=== PATIENT | female | born 1940 | race Caucasian/White ===

== ENCOUNTER 2017-05-02 12:49 | Inpatient (IN) | payer MEDICARE, OTHER ==
[~2017-05-02] VITALS: Ht 162.6 cm; Wt 61.2 kg
[~2017-05-02 12:49] MED LIST: CITALOPRAM HBR10 M1 ORAL; COLACE100 MG ORAL; DEPAKOTE ER500 MG ORAL; ECPIRIN325 M1 PO; METOPROLOL TART25 MG ORAL; PEPCID40 MG PO; SEROQUEL XR50 MG ORAL; ZOLPIDEM TARTRAT5 MG ORAL
--- NOTE | 2017-05-02 13:14 | Emergency Room Report ---
History of Present Illness General Chief Complaint: Chest Pain Source: Patient, EMS Present Illness HPI 76-year-old female p/w chest pain for less than 30 minutes. Chest pain started gradually. Localized to substernal area, no radiation to back or other areas, sharp in nature. no SOB. Denies palpitations, diaphoresis, n/v. Denies fever, chills, cough, abd pain. Denies trauma. Patient does not know if she has had a stress test in the past Denies smoking, no family history of cardiac disease at a young age. EMS arrived, gave aspirin, and nitroglycerin, which improved the pain Allergies: Coded Allergies: No Known Allergies (Unverified , 12/02/14) Patient History Past Medical History: see triage record Past Surgical History: none Pertinent Family History: none Reviewed Nursing Documentation: PMH: Agreed, PSxH: Agreed Nursing Documentation-PMH Hx Hypertension: Yes Review of Systems All Other Systems: negative except mentioned in HPI Physical Exam Vital Signs Date Time Temp Pulse Resp B/P (MAP) Pulse Ox O2 Delivery O2 Flow Rate FiO2 05/02/17 12:47 97.7 92 20 129/71 94 Room Air Sp02 EP Interpretation: reviewed, normal General Appearance: normal inspection, well appearing, no apparent distress, alert, GCS 15, non-toxic Head: normocephalic, atraumatic Eyes: bilateral eye normal inspection, bilateral eye PERRL, bilateral eye EOMI ENT: normal ENT inspection, normal pharynx, normal voice, moist mucus membranes Neck: normal inspection, full range of motion, supple Respiratory: normal inspection, lungs clear, normal breath sounds, no respiratory distress, no retraction, no wheezing, speaking full sentences, chest symmetrical Cardiovascular #1: normal inspection, regular rate, rhythm, no edema, normal capillary refill Cardiovascular #2: 2+ radial (R), 2+ radial (L) Gastrointestinal: normal inspection, non tender, soft, non-distended, no guarding Musculoskeletal: normal inspection, back normal, normal range of motion, non- tender Neurologic: normal inspection, alert, oriented x3, responsive, motor strength/ tone normal, sensory intact, normal gait, speech normal Psychiatric: normal inspection, judgement/insight normal, memory normal Skin: normal inspection, normal color, no rash, warm/dry, well hydrated, normal turgor Medical Decision Making Diagnostic Impression: Primary Impression: Acute coronary syndrome ER Course 76-year-old female presents with chest pain DDX: ACS vs. CHF vs. pneumonia vs. gastritis/GERD vs. pneumothorax PE on differential however at this time there are other more likely diagnoses. Plan: IV access, obtain labs including troponin, EKG, CXR ASA already given by EMS Anticipate admission ER course: Patient has remained on a monitor, HD stable, chest pain improved. Disposition: Patient requires admission for chest pain. Due to patient's history and comorbidities, patient has increased risk of acute cardiac event. Patient requires admission for further workup, serial troponin, and possible stress test/cath inpatient. D/W hospitalist Please note that this Emergency Department Report was dictated using [employer] picking supervisor technology software, occasionally this can lead to erroneous entry secondary to interpretation by the dictation equipment. EKG Diagnostic Results EP Interpretation: Yes Rate: normal Rhythm: NSR ST Segments: No acute changes ASA given to patient: Yes Rhythm Strip EP Interpretation: Yes Rate: 80 Rhythm: NSR, no PVCs, no ectopy Chest X-ray CXR: Ordered: Yes 1 view Indication: Chest pain EP interpretation: Yes Interpretation: No consolidation, no effusion, no PTX, no acute cardiopulmonary disease Impression: No acute disease Electronically signed by Ryan Caceres MD Laboratory Tests Test 05/02/17 13:00 White Blood Count 9.0 K/UL (4.8-10.8) Red Blood Count 4.41 M/UL (4.20-5.40) Hemoglobin 14.1 G/DL (12.0-16.0) Hematocrit 42.7 % (37.0-47.0) Mean Corpuscular Volume 97 FL (80-99) Mean Corpuscular Hemoglobin 31.9 PG (27.0-31.0) H Mean Corpuscular Hemoglobin Concent 32.9 G/DL (32.0-36.0) Red Cell Distribution Width 11.4 % (11.6-14.8) L Platelet Count 286 K/UL (150-450) Mean Platelet Volume 5.9 FL (6.5-10.1) L Neutrophils (%) (Auto) 65.9 % (45.0-75.0) Lymphocytes (%) (Auto) 24.7 % (20.0-45.0) Monocytes (%) (Auto) 7.4 % (1.0-10.0) Eosinophils (%) (Auto) 1.3 % (0.0-3.0) Basophils (%) (Auto) 0.7 % (0.0-2.0) Sodium Level 137 MMOL/L (136-145) Potassium Level 3.9 MMOL/L (3.5-5.1) Chloride Level 100 MMOL/L (98-107) Carbon Dioxide Level 27 MMOL/L (21-32) Anion Gap 10 mmol/L (5-15) Blood Urea Nitrogen 13 mg/dL (7-18) Creatinine 1.0 MG/DL (0.55-1.30) Estimate Glomerular Filtration Rate mL/min (>60) Glucose Level 83 MG/DL (74-106) Calcium Level 9.4 MG/DL (8.5-10.1) Total Bilirubin 0.3 MG/DL (0.2-1.0) Aspartate Amino Transferase (AST) 13 U/L (15-37) L Alanine Aminotransferase (ALT) 8 U/L (12-78) L Alkaline Phosphatase 52 U/L (46-116) Troponin I 0.014 ng/mL (0.000-0.056) Pro-B-Type Natriuretic Peptide 135 pg/mL (0-125) H Total Protein 7.7 G/DL (6.4-8.2) Albumin 3.9 G/DL (3.4-5.0) Globulin 3.8 g/dL Albumin/Globulin Ratio 1.0 (1.0-2.7) Last Vital Signs Date Time Temp Pulse Resp B/P (MAP) Pulse Ox O2 Delivery O2 Flow Rate FiO2 05/02/17 12:47 97.7 92 20 129/71 94 Room Air Disposition: ADMITTED INPATIENT Condition: Serious Ryan Caceres M.D. May 02, 2017 13:14
--- NOTE | 2017-05-02 13:42 | Diagnostic Imaging Report ---
Indication: Dyspnea Comparison: None A single view chest radiograph was obtained. Findings: Cardiomediastinal appearance is within normal limits for age. Pulmonary vascularity is appropriate. The diaphragmatic contour is smooth and costophrenic angles are sharp. No pleural effusions are identified. The bones are osteopenic. Impression: No acute findings
[2017-05-02 13:52] LABS: BASOPHILS % (AUTO) 0.7 % (0.0-2.0); EOSINOPHILS % (AUTO) 1.3 % (0.0-3.0); HEMATOCRIT 42.7 % (37.0-47.0); HEMOGLOBIN 14.1 G/DL (12.0-16.0); LYMPHOCYTES % (AUTO) 24.7 % (20.0-45.0); MEAN CORPUSCULAR VOLUME 97 FL (80-99); MONOCYTES % (AUTO) 7.4 % (1.0-10.0); NEUTROPHILS % (AUTO) 65.9 % (45.0-75.0); PLATELET COUNT 286 K/UL (150-450); RED BLOOD COUNT 4.41 M/UL (4.20-5.40); RED CELL DISTRIBUTION WIDTH 11.4 % (11.6-14.8)
[2017-05-02 13:54] LABS: ANION GAP 10 mmol/L (5-15); BLOOD UREA NITROGEN 13 mg/dL (7-18); CALCIUM 9.4 MG/DL (8.5-10.1); CARBON DIOXIDE 27 MMOL/L (21-32); CHLORIDE 100 MMOL/L (98-107); POTASSIUM 3.9 MMOL/L (3.5-5.1); SODIUM 137 MMOL/L (136-145)
[2017-05-02 14:00] VITALS: BP 151/76
[2017-05-02 14:05] LABS: ALANINE AMINOTRANSFERASE 8 U/L (12-78); ALBUMIN 3.9 G/DL (3.4-5.0); ALKALINE PHOSPHATASE 52 U/L (46-116); ASPARTATE AMINO TRANSFERASE 13 U/L (15-37); BILIRUBIN,TOTAL 0.3 MG/DL (0.2-1.0)
[2017-05-02 16:00] VITALS: BP 183/84
[2017-05-02] MEDS ORDERED: Heparin 5000 units/ml inj IV ONE (17:15)
[2017-05-02] MEDS ORDERED: Nitroglycerin Subl 0.4mg tab SL PRN (17:15)
[2017-05-02] MEDS ORDERED: Heparin 25,000u/D5W 500ml 500 ML IV SCH (17:15)
[2017-05-02 18:00] VITALS: BP 142/57
[2017-05-02 20:22] VITALS: BP 155/89
[2017-05-02] MEDS ORDERED: Enoxaparin Sodium 300mg/3ml vial SUBQ SCH (21:00)
[2017-05-02] MEDS: Enalapril 2.5mg tab ORAL SCH (21:08)
[2017-05-02] MEDS: 1/2NS w/KCl 20mEq 1000ml 1,000 ML IV SCH (21:08)
[2017-05-02] MEDS: Atorvastatin 80mg tab ORAL SCH (21:08)
--- NOTE | 2017-05-02 21:39 | Cardiology Progress Note ---
Subjective Subjective The patient with atypical chest pain. will follow troponin. might need stress test Objective Last 24 Hour Vital Signs Date Time Temp Pulse Resp B/P (MAP) Pulse Ox O2 Delivery O2 Flow Rate FiO2 05/02/17 21:08 155/89 05/02/17 20:22 96.8 18 18 155/89 97 Room Air 05/02/17 20:00 97.8 77 20 142/57 95 Room Air 05/02/17 18:00 97.8 77 20 142/57 95 Room Air 05/02/17 16:00 97.8 78 24 183/84 99 Room Air 05/02/17 14:00 96 24 151/76 95 Room Air 05/02/17 12:50 92 20 Room Air 05/02/17 12:47 97.7 92 20 129/71 94 Room Air Laboratory Tests Test 05/02/17 13:00 05/02/17 13:30 White Blood Count 9.0 K/UL (4.8-10.8) Red Blood Count 4.41 M/UL (4.20-5.40) Hemoglobin 14.1 G/DL (12.0-16.0) Hematocrit 42.7 % (37.0-47.0) Mean Corpuscular Volume 97 FL (80-99) Mean Corpuscular Hemoglobin 31.9 PG (27.0-31.0) H Mean Corpuscular Hemoglobin Concent 32.9 G/DL (32.0-36.0) Red Cell Distribution Width 11.4 % (11.6-14.8) L Platelet Count 286 K/UL (150-450) Mean Platelet Volume 5.9 FL (6.5-10.1) L Neutrophils (%) (Auto) 65.9 % (45.0-75.0) Lymphocytes (%) (Auto) 24.7 % (20.0-45.0) Monocytes (%) (Auto) 7.4 % (1.0-10.0) Eosinophils (%) (Auto) 1.3 % (0.0-3.0) Basophils (%) (Auto) 0.7 % (0.0-2.0) Sodium Level 137 MMOL/L (136-145) Potassium Level 3.9 MMOL/L (3.5-5.1) Chloride Level 100 MMOL/L (98-107) Carbon Dioxide Level 27 MMOL/L (21-32) Anion Gap 10 mmol/L (5-15) Blood Urea Nitrogen 13 mg/dL (7-18) Creatinine 1.0 MG/DL (0.55-1.30) Estimat Glomerular Filtration Rate mL/min (>60) Glucose Level 83 MG/DL (74-106) Calcium Level 9.4 MG/DL (8.5-10.1) Total Bilirubin 0.3 MG/DL (0.2-1.0) Aspartate Amino Transf (AST/SGOT) 13 U/L (15-37) L Alanine Aminotransferase (ALT/SGPT) 8 U/L (12-78) L Alkaline Phosphatase 52 U/L (46-116) Troponin I 0.014 ng/mL (0.000-0.056) Pro-B-Type Natriuretic Peptide 135 pg/mL (0-125) H Total Protein 7.7 G/DL (6.4-8.2) Albumin 3.9 G/DL (3.4-5.0) Globulin 3.8 g/dL Albumin/Globulin Ratio 1.0 (1.0-2.7) Activated Partial Thromboplast Time 29 SEC (23-33) MISSY ROSENBERG May 02, 2017 21:39
--- NOTE | 2017-05-02 22:02 | History and Physical Report ---
DATE OF ADMISSION: 05/02/2017 CHIEF COMPLAINT: Chest pain. HISTORY OF PRESENT ILLNESS: This is a 76-year-old female, who lives in [facility]. The patient presented earlier to this hospital's emergency department complaining of atypical chest pain. PAST MEDICAL HISTORY: 1. Bipolar disorder. 2. Hypertensive cardiovascular disease. MEDICATIONS: Home medications, aspirin 325 mg p.o. daily, Celexa 20 mg p.o. daily, Depakote ER 500 mg p.o. daily, Colace p.r.n., Pepcid 40 mg daily, Toprol-XL 25 mg daily, Seroquel 100 mg p.o. at bedtime, and zolpidem 5 mg p.o. at bedtime. ALLERGIES: No known drug allergies. FAMILY HISTORY: Unremarkable. SOCIAL HISTORY: She lives in [place]. Habits, nonsmoker and nondrinker. There is no history of illicit drug abuse. REVIEW OF SYSTEMS: HEENT: Hearing and eyesight are normal. ENDOCRINE: No history of diabetes, thyroid, or adrenal problems. RESPIRATORY: She denies shortness of breath, cough, or hemoptysis. CARDIOVASCULAR: She denies chest pain or palpitations. GASTROINTESTINAL: No history of hematochezia, melena, hematemesis, diarrhea, or constipation. GENITOURINARY: She denies dysuria, frequency, urgency, or hematuria. NEUROLOGICAL: No history of stroke. PHYSICAL EXAMINATION: GENERAL: This is an elderly female, who is in no acute distress. VITAL SIGNS: Blood pressure 183/84, pulse 78 and regular, respirations 20, and temperature 97.8 degrees. HEENT: The head is normocephalic and atraumatic. Pupils are equal, round, and reactive to light and accommodation consensually. NECK: Supple. Trachea midline. There was no lymphadenopathy or thyromegaly. LUNGS: Clear to auscultation and percussion. HEART: Regular rate and rhythm without rubs, murmurs, or gallops. ABDOMEN: Soft. Bowel sounds were active. EXTREMITIES: No clubbing, cyanosis, or edema. NEUROLOGIC: She is alert and oriented x4. Cranial nerves II through XII intact. LABORATORY AND ANCILLARY DATA: CBC within normal limits. CMP within normal limits. Troponin level 0.014. EKG within normal limits. Chest x-ray, no acute disease. ASSESSMENT: Atypical chest pain. PLAN: 1. Admit to telemetry for observation. 2. Bipolar disorder. 2. Hypertensive cardiovascular disease. 3. Continue broad and care medications. Darci Pabon M.D. DR: SREEKANTH JOB#: [id number] CC: IGGY
[2017-05-03 00:22] VITALS: BP 160/69
[2017-05-03] MEDS: Zolpidem 5mg tab ORAL PRN ×2 (01:21→23:21)
[2017-05-03 04:16] VITALS: BP 127/64
[2017-05-03 08:00] VITALS: BP 143/64
[2017-05-03 08:29] LABS: BASOPHILS % (AUTO) 1.1 % (0.0-2.0); EOSINOPHILS % (AUTO) 2.6 % (0.0-3.0); HEMATOCRIT 39.9 % (37.0-47.0); HEMOGLOBIN 13.1 G/DL (12.0-16.0); LYMPHOCYTES % (AUTO) 28.5 % (20.0-45.0); MEAN CORPUSCULAR VOLUME 97 FL (80-99); MONOCYTES % (AUTO) 7.1 % (1.0-10.0); NEUTROPHILS % (AUTO) 60.7 % (45.0-75.0); PLATELET COUNT 279 K/UL (150-450); RED BLOOD COUNT 4.11 M/UL (4.20-5.40); RED CELL DISTRIBUTION WIDTH 11.3 % (11.6-14.8); WHITE BLOOD COUNT 8.1 K/UL (4.8-10.8)
[2017-05-03] MEDS: Enalapril 2.5mg tab ORAL SCH ×2 (09:03→20:33)
[2017-05-03] MEDS: 1/2NS w/KCl 20mEq 1000ml 1,000 ML IV SCH ×2 (09:04→20:39)
[2017-05-03] MEDS: Aspirin Baby 81mg ORAL SCH (09:04)
[2017-05-03] MEDS: Enoxaparin 60mg Inj SUBQ SCH ×2 (10:27→20:39)
[2017-05-03 12:00] VITALS: BP 142/65
[2017-05-03] MEDS ORDERED: Lexiscan 0.4mg/5ml syringe IV ONE (14:00)
--- NOTE | 2017-05-03 15:50 | Cardiology Report ---
APPROVED REPORT EKG Measurement Heart [id number] CT [id number] Normal sinus rhythm with sinus arrhythmia Cannot rule out Anterior infarct, age undetermined Abnormal ECG
[2017-05-03 16:00] VITALS: BP 149/71
--- NOTE | 2017-05-03 18:02 | General Progress Note ---
Assessment/Plan Assessment/Plan Atypical CP. MICHELLE Pablo. For Henna Scan Subjective Allergies: Coded Allergies: No Known Allergies (Unverified , 12/02/14) Subjective No new c/o Objective Last 24 Hour Vital Signs Date Time Temp Pulse Resp B/P (MAP) Pulse Ox O2 Delivery O2 Flow Rate FiO2 05/03/17 12:00 67 05/03/17 12:00 98.0 65 20 142/65 98 Room Air 05/03/17 09:03 143/64 05/03/17 08:00 70 05/03/17 08:00 97.5 75 19 143/64 97 Room Air 05/03/17 04:16 96.6 68 18 127/64 96 Room Air 05/03/17 04:00 68 05/03/17 00:22 98.2 71 18 160/69 96 Room Air 05/03/17 00:00 68 05/02/17 23:23 160/69 05/02/17 21:08 155/89 05/02/17 21:00 79 05/02/17 20:22 96.8 18 18 155/89 97 Room Air 05/02/17 20:00 97.8 77 20 142/57 95 Room Air Intake and Output 05/02/17 05/03/17 19:00 07:00 Intake Total 0 ml 865 ml Output Total 400 ml Balance 0 ml 465 ml Intake Oral 0 ml 120 ml IV Total 745 ml Output Urine Total 400 ml # Voids 2 Laboratory Tests 05/03/17 07:15: White Blood Count 8.1, Red Blood Count 4.11L, Hemoglobin 13.1, Hematocrit 39.9, Mean Corpuscular Volume 97, Mean Corpuscular Hemoglobin 31.9H, Mean Corpuscular Hemoglobin Concent 32.9, Red Cell Distribution Width 11.3L, Platelet Count 279, Mean Platelet Volume 5.6L, Neutrophils (%) (Auto) 60.7, Lymphocytes (%) (Auto) 28.5, Monocytes (%) (Auto) 7.1, Eosinophils (%) (Auto) 2.6, Basophils (%) (Auto ) 1.1, Troponin I 0.000 Height (Feet): 5 Height (Inches): 4.00 Weight (Pounds): 135 Objective CV RR Lungs CTA Abd SNT. BS + E No CCE ANDREA MATHIS May 03, 2017 18:02
[2017-05-03 20:00] VITALS: BP 137/93
[2017-05-03] MEDS: Atorvastatin 80mg tab ORAL SCH (20:33)
--- NOTE | 2017-05-03 22:04 | Cardiology Progress Note ---
Subjective Subjective The patient with atypical chest pain. will follow troponin. might need stress test [id number] Objective Last 24 Hour Vital Signs Date Time Temp Pulse Resp B/P (MAP) Pulse Ox O2 Delivery O2 Flow Rate FiO2 05/03/17 20:33 163/75 05/03/17 20:00 98.1 78 20 137/93 97 Room Air 05/03/17 16:00 97.2 75 20 149/71 95 Room Air 05/03/17 16:00 76 05/03/17 12:00 67 05/03/17 12:00 98.0 65 20 142/65 98 Room Air 05/03/17 09:03 143/64 05/03/17 08:00 70 05/03/17 08:00 97.5 75 19 143/64 97 Room Air 05/03/17 04:16 96.6 68 18 127/64 96 Room Air 05/03/17 04:00 68 05/03/17 00:22 98.2 71 18 160/69 96 Room Air 05/03/17 00:00 68 05/02/17 23:23 160/69 Intake and Output 05/02/17 05/03/17 19:00 07:00 Intake Total 0 ml 865 ml Output Total 400 ml Balance 0 ml 465 ml Intake Oral 0 ml 120 ml IV Total 745 ml Output Urine Total 400 ml # Voids 2 Laboratory Tests Test 05/03/17 07:15 White Blood Count 8.1 K/UL (4.8-10.8) Red Blood Count 4.11 M/UL (4.20-5.40) L Hemoglobin 13.1 G/DL (12.0-16.0) Hematocrit 39.9 % (37.0-47.0) Mean Corpuscular Volume 97 FL (80-99) Mean Corpuscular Hemoglobin 31.9 PG (27.0-31.0) H Mean Corpuscular Hemoglobin Concent 32.9 G/DL (32.0-36.0) Red Cell Distribution Width 11.3 % (11.6-14.8) L Platelet Count 279 K/UL (150-450) Mean Platelet Volume 5.6 FL (6.5-10.1) L Neutrophils (%) (Auto) 60.7 % (45.0-75.0) Lymphocytes (%) (Auto) 28.5 % (20.0-45.0) Monocytes (%) (Auto) 7.1 % (1.0-10.0) Eosinophils (%) (Auto) 2.6 % (0.0-3.0) Basophils (%) (Auto) 1.1 % (0.0-2.0) Troponin I 0.000 ng/mL (0.000-0.056) MISSY ROSENBERG May 03, 2017 22:04
--- NOTE | 2017-05-03 22:06 | Cardiology Progress Note ---
Assessment/Plan Assessment/Plan chest pain atypical will order strtess test Subjective Subjective the patient feels the same her chest pain resolved Objective Last 24 Hour Vital Signs Date Time Temp Pulse Resp B/P (MAP) Pulse Ox O2 Delivery O2 Flow Rate FiO2 05/03/17 20:33 163/75 05/03/17 20:00 98.1 78 20 137/93 97 Room Air 05/03/17 16:00 97.2 75 20 149/71 95 Room Air 05/03/17 16:00 76 05/03/17 12:00 67 05/03/17 12:00 98.0 65 20 142/65 98 Room Air 05/03/17 09:03 143/64 05/03/17 08:00 70 05/03/17 08:00 97.5 75 19 143/64 97 Room Air 05/03/17 04:16 96.6 68 18 127/64 96 Room Air 05/03/17 04:00 68 05/03/17 00:22 98.2 71 18 160/69 96 Room Air 05/03/17 00:00 68 05/02/17 23:23 160/69 General Appearance: no apparent distress EENT: PERRL/EOMI Neck: supple Rhythm: NSR Cardiovascular: normal rate Respiratory/Chest: lungs clear Abdomen: non tender, soft Extremities: normal range of motion 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 grossly normal Intake and Output 05/02/17 05/03/17 19:00 07:00 Intake Total 0 ml 865 ml Output Total 400 ml Balance 0 ml 465 ml Intake Oral 0 ml 120 ml IV Total 745 ml Output Urine Total 400 ml # Voids 2 Laboratory Tests Test 05/03/17 07:15 White Blood Count 8.1 K/UL (4.8-10.8) Red Blood Count 4.11 M/UL (4.20-5.40) L Hemoglobin 13.1 G/DL (12.0-16.0) Hematocrit 39.9 % (37.0-47.0) Mean Corpuscular Volume 97 FL (80-99) Mean Corpuscular Hemoglobin 31.9 PG (27.0-31.0) H Mean Corpuscular Hemoglobin Concent 32.9 G/DL (32.0-36.0) Red Cell Distribution Width 11.3 % (11.6-14.8) L Platelet Count 279 K/UL (150-450) Mean Platelet Volume 5.6 FL (6.5-10.1) L Neutrophils (%) (Auto) 60.7 % (45.0-75.0) Lymphocytes (%) (Auto) 28.5 % (20.0-45.0) Monocytes (%) (Auto) 7.1 % (1.0-10.0) Eosinophils (%) (Auto) 2.6 % (0.0-3.0) Basophils (%) (Auto) 1.1 % (0.0-2.0) Troponin I 0.000 ng/mL (0.000-0.056) MISSY ROSENBERG May 03, 2017 22:06
[2017-05-04] VITALS: BP 151/66
[2017-05-04 02:04] VITALS: BP 151/66
[2017-05-04 04:00] VITALS: BP 152/66
--- NOTE | 2017-05-04 05:03 | Consultation ---
DATE OF CONSULTATION: 05/02/2017 CARDIOLOGY CONSULTATION CONSULTING PHYSICIAN: Negrita Pablo M.D. REFERRING PHYSICIAN: Darci Pabon M.D. IDENTIFICATION DATA: The patient is a 76-year-old female. REASON FOR EVALUATION: Chest pain. HISTORY OF PRESENT ILLNESS: Taken from this patient. She is a very pleasant elderly female, who said that she has left-sided pain, on the left breast, which she has difficulty to describe. She has this for several years, approximately twice a week. There is no provocative or relieving factors. She is trying to lie down when she has this pain, hopefully it will go away. It also slightly radiates to the left arm. It is not exertional and it is not relieved by any specific medication or position. I asked her why she decided to come to the emergency room if she has this pain for years and she said that she got sick of it, she got tired of it. I asked her if she thinks the pain got worse and she denies. She does not have diabetes. She is not a smoker, and she does not know about her cholesterol. PAST MEDICAL HISTORY: Significant for hypertension and memory loss and she said she is taking medication for that. SURGICAL HISTORY: Negative according to the patient. MEDICATIONS: Reviewed. ALLERGIES: She is not allergic to any medications. FAMILY HISTORY: Coronary artery disease. HABITS: No history of drinking, smoking, or drug abuse. SOCIAL HISTORY: She is independent. Lives at home. REVIEW OF SYSTEMS: Review of systems was done in detail, but no positive was found. The patient said she ambulates everyday. Does not have any significant symptoms during the ambulation. PHYSICAL EXAMINATION: GENERAL: This is a pleasant elderly female, not in acute distress, appears to be very stable and comfortable. VITAL SIGNS: Blood pressure 150/70, heart rate is 90, and temperature is normal. Oxygen saturation 95% on room air. HEENT: PERRLA. EOMI. NECK: Neck veins are not distended. Carotid upstroke is preserved. There is no bruit. LUNGS: Few crackles at bases. HEART: Regular. Slightly diminished S1. There is no gallop. ABDOMEN: Soft and nontender. Bowel sounds are present. EXTREMITIES: Lower extremities, no edema. Distal pulses palpable. NEUROLOGIC: Intact. DIAGNOSTIC DATA: EKG, low voltage in precordial leads. LABORATORY AND DIAGNOSTIC DATA: Noted. Chemistry is unremarkable. Troponin is normal. Chest x-ray was unremarkable. IMPRESSION AND RECOMMENDATIONS: Atypical chest pain. Coronary risk factors include hypertension and age. We are going to check her lipid panel. We are going to go ahead and order a stress nuclear test. That was discussed with the patient and Dr. Pabon, who agreed. Thank you very much for your consultation. Negrita Pablo M.D. DR: JOSELO JOB#: [id number] CC:
[2017-05-04 08:00] VITALS: BP 153/84
[2017-05-04] MEDS: Enalapril 2.5mg tab ORAL SCH (08:44)
[2017-05-04] MEDS: Aspirin Baby 81mg ORAL SCH (08:45)
[2017-05-04] MEDS: Enoxaparin 60mg Inj SUBQ SCH (08:46)
[2017-05-04] MEDS: 1/2NS w/KCl 20mEq 1000ml 1,000 ML IV SCH (11:17)
--- NOTE | 2017-05-04 11:30 | Diagnostic Imaging Report ---
Indication: chest pain Technique: The study was conducted under the supervision of a educational technologist. lexiscan (regadenoson) infusion over 10 seconds followed by intravenous administration of 31.6 mCi of technetium 99m Myoview was performed. Three plane SPECT imaging of the heart was then performed. A resting study was performed as part of the one-day protocol with 29.5 mCi of technetium 99m myoview injected intravenously at that time. Three plane SPECT imaging of the heart was obtained. Comparison: None Clinical data: 1. Clinical response: Non ischemic 2. Electrocardiographic response: Non ischemic Findings: The myocardial perfusion scan demonstrates no fixed or reversible perfusion defects. LVEF estimated at 81%. No wall motion abnormalities seen. IMPRESSION: Negative myocardial perfusion scan
[2017-05-04 11:59] VITALS: BP 149/78
--- NOTE | 2017-05-04 14:14 | General Progress Note ---
Assessment/Plan Assessment/Plan Atypical CP. DW Dr. Pablo. For Henna Scan -negative. DC home Subjective Allergies: Coded Allergies: No Known Allergies (Unverified , 12/02/14) Subjective No new c/o Objective Last 24 Hour Vital Signs Date Time Temp Pulse Resp B/P (MAP) Pulse Ox O2 Delivery O2 Flow Rate FiO2 05/04/17 11:59 98.2 72 18 149/78 98 Room Air 05/04/17 08:44 153/84 05/04/17 08:00 96.6 76 18 153/84 100 Room Air 05/04/17 08:00 75 05/04/17 04:00 97.3 74 20 152/66 98 Room Air 05/04/17 04:00 61 05/04/17 00:00 66 05/04/17 00:00 97.9 66 20 151/66 95 Room Air 05/03/17 20:33 163/75 05/03/17 20:00 98.1 78 20 137/93 97 Room Air 05/03/17 20:00 87 05/03/17 16:00 97.2 75 20 149/71 95 Room Air 05/03/17 16:00 76 Intake and Output 05/03/17 05/04/17 19:00 07:00 Intake Total 1085 ml 1025 ml Balance 1085 ml 1025 ml Intake Oral 260 ml 200 ml IV Total 825 ml 825 ml # Voids 2 Laboratory Tests 05/04/17 06:50: Troponin I 0.010 Height (Feet): 5 Height (Inches): 4.00 Weight (Pounds): 135 Objective CV RR Lungs CTA Abd SNT. BS + E No CCE ANDREA MATHIS May 04, 2017 14:14
--- NOTE | 2017-05-04 15:24 | Cardiology Progress Note ---
Assessment/Plan Assessment/Plan atypical chest pain reviewed stress test stable for discharge d/w Dr Pabon and nursing Subjective Subjective tfeels good, no chest pain no dyspnea Objective Last 24 Hour Vital Signs Date Time Temp Pulse Resp B/P (MAP) Pulse Ox O2 Delivery O2 Flow Rate FiO2 05/04/17 12:00 79 05/04/17 11:59 98.2 72 18 149/78 98 Room Air 05/04/17 08:44 153/84 05/04/17 08:00 96.6 76 18 153/84 100 Room Air 05/04/17 08:00 75 05/04/17 04:00 97.3 74 20 152/66 98 Room Air 05/04/17 04:00 61 05/04/17 00:00 66 05/04/17 00:00 97.9 66 20 151/66 95 Room Air 05/03/17 20:33 163/75 05/03/17 20:00 98.1 78 20 137/93 97 Room Air 05/03/17 20:00 87 05/03/17 16:00 97.2 75 20 149/71 95 Room Air 05/03/17 16:00 76 General Appearance: no apparent distress, alert EENT: PERRL/EOMI Neck: supple Rhythm: NSR Cardiovascular: normal rate Respiratory/Chest: lungs clear Abdomen: soft Extremities: non-tender, slow capillary refill Intake and Output 05/03/17 05/04/17 19:00 07:00 Intake Total 1085 ml 1025 ml Balance 1085 ml 1025 ml Intake Oral 260 ml 200 ml IV Total 825 ml 825 ml # Voids 2 Laboratory Tests Test 05/04/17 06:50 Troponin I 0.010 ng/mL (0.000-0.056) MISSY ROSENBERG May 04, 2017 15:24
--- NOTE | 2017-05-05 10:16 | Discharge Summary ---
Discharge Summary Hospital Course Date of Admission May 02, 2017 at 14:24 Date of Discharge May 04, 2017 at 17:25 Admitting Diagnosis ACS HPI Onelia Pereyra is a 76 year old female who was admitted on May 02, 2017 at 14:24 for Acute Coronary Syndrome Hospital Course [id number] Discharge Discharge Disposition Patient was discharged to [facility] (01) Discharge Diagnoses: Nicolasa Jalloh NP May 05, 2017 10:16
--- NOTE | 2017-05-05 23:30 | Discharge Summary 2 SIG ---
DATE OF ADMISSION: 05/02/2017 DATE OF DISCHARGE: 05/04/2017 APPLICATION DEVELOPMENT CONSULTANT: Negrita Pablo M.D. BRIEF HOSPITAL COURSE: The patient is a 76-year-old female, who lives in [facility], presented to emergency department complaining of chest pain. She has past medical history significant for hypertension and memory loss. Denies smoking. Denies diabetes. Initial troponin at ED was negative and EKG was in normal sinus rhythm. Chest x-ray showed no acute disease. Coronary risk factors include hypertension and age. She was then admitted for cardiac evaluation and was seen by edger operator. She was given aspirin, Lipitor, and Protonix. Cardiac troponins were negative. She underwent myocardial perfusion scan and results were nonischemic. The patient was then discharged home. FINAL DIAGNOSES: 1. Atypical chest pain. 2. Hypertension. 3. Hyperlipidemia. DISPOSITION: The patient was discharged home. DISCHARGE MEDICATIONS: Refer to medication list. DISCHARGE INSTRUCTIONS: Follow up with PMD in a week. Darci Pabon M.D. I have been assigned to dictate discharge summary on this account and I was not involved in the patient's management. Nicolasa Jalloh N.P. DR: LYNNE JOB#: [id number] CC:
--- NOTE | 2017-05-09 17:18 | IOP Daily Group Progress Note ---
IOP Daily Group Progress Note Treatment Plan/Target Problem: Problem: impaired thoughts Program: reflections Group Reflections - Monday: group 1 (9:40am-10:25am) Therapy Goal(s) of Group: identify mood, impact of current issues on mood, verbalize current thoughts and mood Observations: active listening skills, attentive, depressed mood, engaged, open , participated, responded to prompts, smiled when appropriate Staff Intervention: assessed for safety/suicidality, assessed pt's current mood , encouraged patient participation, facilitated discussion, prompted pt, provided support, reflective listening, validated feelings Staff Intervention: Therapist prompted pt to identify and verbalize current mood and impact of life stressors on current mood. Response/Progress Noted: Pt participated in a therapeutic process group exercise helping the PT to identify and verbalize their current mood and to identify and verbalize the impact of their current life issues on their mood. Pt benefited from the group as evidenced by stating that "sometimes it takes a real effort to come here, but it still feels worth it". Pt. denied suicidal/homicidal ideation or plan. Juan Daniel Viera [facility] May 09, 2017 17:18
--- NOTE | 2017-05-12 02:18 | Physician Query ---
PLEASE COMPLETE THE QUESTION BEFORE SIGNING Dear Dr. MATHIS Date: 05/12/17 Gym Supervisor/CDS' Name: TERESO REYES CCS Exercise your independent professional judgment when responding to query. Questions asked do not imply particular answer is desired or expected. We greatly appreciate your clarification on this issue. Clinical Documentation States: FINAL DIAGNOSES: 1. Atypical chest pain. 2. Hypertension. 3. Hyperlipidemia. PAST MEDICAL HISTORY: 1. Bipolar disorder. 2. Hypertensive cardiovascular disease. Clinical Findings Show: EKG = _NSR Troponin = NEGATIVE MYOCARDIAL PERFUSION SCAN: NONISCHEMIC Please document the suspected etiology of Chest Pain: a.Type: []Cardiac [x]Non-cardiac []Unspecified b.Etiology - cardiac [] Aortic dissection []Mitral valve prolapsed [] Acute myocardial infarction []Spasm of coronary arteries [] Coronary Artery Disease []Pericarditis c.Etiology - non-cardiac [x] Anxiety []Pleurisy [] Cancer []Pneumonia, type [] Costochondritis []Pneumothorax [] GERD/Esophagitis []Pulmonary embolism [] Unable to determine []Other: Please also document in your Progress Notes and/or Discharge Summary and indicate if the condition was present on admission. ANDREA MATHIS M.D. DATE & TIME [facility]
== END 2017-05-04 17:25 | disposition home or self-care (01) | DRG 880 ==
LOC: EDBD 12:49 → EMR 14:22 → 2E 14:24 → EDBEDREQ 16:56 → 2E 05-04 15:02
DX: F41.9 Anxiety disorder, unspecified (principal); I11.9 Hypertensive heart disease without heart failure; I10 Essential (primary) hypertension; E78.5 Hyperlipidemia, unspecified; F31.9 Bipolar disorder, unspecified
CPT/HCPCS: 36415; 71045; 78452; 80053; 83880; 84484; 85025; 85730; 87081; 93005; 93017; 99285; J2785

== ENCOUNTER 2018-02-03 14:15 | Emergency (ER) | payer MEDICARE ==
[~2018-02-03] VITALS: Ht 162.6 cm; Wt 68.0 kg
[2018-02-03 14:20] VITALS: BP 144/98
[2018-02-03] MEDS ORDERED: Sodium Chloride 500ML 500 ML IV ONE (14:24)
[2018-02-03 14:58] LABS: BASOPHILS % (AUTO) 0.6 % (0.0-2.0); HEMATOCRIT 43.3 % (37.0-47.0); HEMOGLOBIN 14.7 G/DL (12.0-16.0); LYMPHOCYTES % (AUTO) 19.2 % (20.0-45.0); MEAN CORPUSCULAR VOLUME 90 FL (80-99); MONOCYTES % (AUTO) 7.8 % (1.0-10.0); NEUTROPHILS % (AUTO) 72.4 % (45.0-75.0); PLATELET COUNT 306 K/UL (150-450); RED BLOOD COUNT 4.79 M/UL (4.20-5.40); RED CELL DISTRIBUTION WIDTH 11.5 % (11.6-14.8); WHITE BLOOD COUNT 11.4 K/UL (4.8-10.8)
[2018-02-03 15:09] LABS: ANION GAP 12 mmol/L (5-15); BLOOD UREA NITROGEN 15 mg/dL (7-18); CALCIUM 9.8 MG/DL (8.5-10.1); CARBON DIOXIDE 25 MMOL/L (21-32); CHLORIDE 95 MMOL/L (98-107); CREATININE 0.9 MG/DL (0.55-1.30); POTASSIUM 3.7 MMOL/L (3.5-5.1); SODIUM 132 MMOL/L (136-145)
[2018-02-03 15:14] LABS: ALANINE AMINOTRANSFERASE 18 U/L (12-78); ALBUMIN 3.9 G/DL (3.4-5.0); ALKALINE PHOSPHATASE 64 U/L (46-116); ASPARTATE AMINO TRANSFERASE 23 U/L (15-37); BILIRUBIN,TOTAL 0.5 MG/DL (0.2-1.0)
[2018-02-03 15:21] LABS: APPEARANCE,URINE CLEAR; BILIRUBIN, URINE NEGATIVE (NEGATIVE); GLUCOSE, URINE (UA) NEGATIVE (NEGATIVE); KETONES,URINE 3+ (NEGATIVE); LEUKOCYTE ESTERASE ,URINE 2+ (NEGATIVE); NITRITE,URINE NEGATIVE (NEGATIVE); PH,URINE 5 (4.5-8.0); PROTEIN,URINE 3+ (NEGATIVE); UROBILINOGEN,URINE NORMAL MG/DL (0.0-1.0)
[2018-02-03 15:31] LABS: COLOR,URINE YELLOW
--- NOTE | 2018-02-03 17:31 | Emergency Room Report ---
History of Present Illness General Chief Complaint: Abdominal Pain Source: Patient Present Illness HPI 77-year-old female presents ED for evaluation. Patient [facility] Per nursing staff patient had a fever and was complaining of nausea times one day. Afebrile in triage. Patient denies any abdominal pain. Denies cough. Denies sore throat or earache. Denies dysuria or hematuria. Denies vomiting. Denies diarrhea. No other aggravating relieving factors. Any other associated symptoms Allergies: Coded Allergies: No Known Allergies (Unverified , 12/02/14) Patient History Past Medical History: psych hx Past Surgical History: none Pertinent Family History: none Social History: Denies: smoking, alcohol use, drug use Now: No Immunizations: UTD Reviewed Nursing Documentation: PMH: Agreed; PSxH: Agreed Nursing Documentation-PMH Past Medical History: No History, Except For Hx Hypertension: Yes Hx Cancer: No Hx Gastrointestinal Problems: No History Of Psychiatric Problem: Yes - depression Hx Neurological Problems: No Review of Systems All Other Systems: negative except mentioned in HPI Physical Exam Vital Signs Date Time Temp Pulse Resp B/P (MAP) Pulse Ox O2 Delivery O2 Flow Rate FiO2 02/03/18 14:17 99.2 86 16 164/80 94 Room Air 99.1 Sp02 EP Interpretation: reviewed, normal General Appearance: no apparent distress, alert, GCS 15, non-toxic Head: normocephalic, atraumatic Eyes: bilateral eye normal inspection, bilateral eye PERRL ENT: hearing grossly normal, normal pharynx, no angioedema, normal voice Neck: full range of motion, supple/symm/no masses Respiratory: chest non-tender, lungs clear, normal breath sounds, speaking full sentences Cardiovascular #1: regular rate, rhythm, no edema Cardiovascular #2: 2+ carotid (R), 2+ carotid (L), 2+ radial (R), 2+ radial (L) , 2+ dorsalis pedis (R), 2+ dorsalis pedis (L) Gastrointestinal: normal bowel sounds, non tender, soft, non-distended, no guarding, no rebound Rectal: deferred Genitourinary: normal inspection, no CVA tenderness Musculoskeletal: back normal, gait/station normal, normal range of motion, non- tender Neurologic: alert, oriented x3, responsive, motor strength/tone normal, sensory intact, speech normal Psychiatric: judgement/insight normal, memory normal, mood/affect normal, no suicidal/homicidal ideation Reflexes: 3+ bicep (R), 3+ bicep (L), 3+ tricep (R), 3+ tricep (L), 3+ knee (R) , 3+ knee (L) Skin: normal color, no rash, warm/dry, well hydrated Lymphatic: no adenopathy Medical Decision Making Diagnostic Impression: Primary Impression: Nausea ER Course Hospital Course 77 yo F present with nausea, no vomiting, no pain differential diagnosis: gastritis, SBO, cholecystits Clinical course Patient placed on stretcher. On cardiac rehabilitation program director. After initial history and physical I ordered labs, IV fluids, Zofran Labs - minimal leukocytosis, no electrolyte abnormalities, LFTs normal, UA unremarkable Vital stable. Patient alert oriented 3. No nausea here. Tolerating by mouth intake. Discussed with PMD Dr. Pabon. I do not believe patient requires admission at this time. Safe for discharge back to detention facility. He agrees I feel this is a highly complex case requiring extensive working including EKG/ Rhythm strip, Xray/CT/US, Blood/urine lab work, repeat exams while in ED, and administration of strong opiates/narcotics for pain control, admission to hospital or close patient follow up. Diagnosis -nausea Stable and discharged to SNF with prescriptions for zofran. Followup with PMD. Return to ED if symptoms recur or worsen Labs Test 02/03/18 14:45 02/03/18 14:50 White Blood Count 11.4 K/UL (4.8-10.8) Red Blood Count 4.79 M/UL (4.20-5.40) Hemoglobin 14.7 G/DL (12.0-16.0) Hematocrit 43.3 % (37.0-47.0) Mean Corpuscular Volume 90 FL (80-99) Mean Corpuscular Hemoglobin 30.8 PG (27.0-31.0) Mean Corpuscular Hemoglobin Concent 34.0 G/DL (32.0-36.0) Red Cell Distribution Width 11.5 % (11.6-14.8) Platelet Count 306 K/UL (150-450) Mean Platelet Volume 5.8 FL (6.5-10.1) Neutrophils (%) (Auto) 72.4 % (45.0-75.0) Lymphocytes (%) (Auto) 19.2 % (20.0-45.0) Monocytes (%) (Auto) 7.8 % (1.0-10.0) Eosinophils (%) (Auto) 0.0 % (0.0-3.0) Basophils (%) (Auto) 0.6 % (0.0-2.0) Sodium Level 132 MMOL/L (136-145) Potassium Level 3.7 MMOL/L (3.5-5.1) Chloride Level 95 MMOL/L (98-107) Carbon Dioxide Level 25 MMOL/L (21-32) Anion Gap 12 mmol/L (5-15) Blood Urea Nitrogen 15 mg/dL (7-18) Creatinine 0.9 MG/DL (0.55-1.30) Estimat Glomerular Filtration Rate mL/min (>60) Glucose Level 117 MG/DL (74-106) Calcium Level 9.8 MG/DL (8.5-10.1) Total Bilirubin 0.5 MG/DL (0.2-1.0) Aspartate Amino Transf (AST/SGOT) 23 U/L (15-37) Alanine Aminotransferase (ALT/SGPT) 18 U/L (12-78) Alkaline Phosphatase 64 U/L (46-116) Total Protein 7.9 G/DL (6.4-8.2) Albumin 3.9 G/DL (3.4-5.0) Globulin 4.0 g/dL Albumin/Globulin Ratio 1.0 (1.0-2.7) Lipase 82 U/L (73-393) Urine Color Yellow Urine Appearance Clear Urine pH 5 (4.5-8.0) Urine Specific [place] 1.020 (1.005-1.035) Urine Protein 3+ (NEGATIVE) Urine Glucose (UA) Negative (NEGATIVE) Urine Ketones 3+ (NEGATIVE) Urine Blood 4+ (NEGATIVE) Urine Nitrite Negative (NEGATIVE) Urine Bilirubin Negative (NEGATIVE) Urine Urobilinogen Normal MG/DL (0.0-1.0) Urine Leukocyte Esterase 2+ (NEGATIVE) Urine RBC 5-10 /HPF (0 - 2) Urine WBC 2-4 /HPF (0 - 2) Urine Squamous Epithelial Cells Few /LPF (NONE/OCC) Urine Bacteria Few /HPF (NONE) Last Vital Signs Date Time Temp Pulse Resp B/P (MAP) Pulse Ox O2 Delivery O2 Flow Rate FiO2 02/03/18 14:17 99.2 86 16 164/80 94 Room Air 99.1 Status: improved Disposition: XFER SNF Condition: Stable Referrals: Darci Pabon MD (PCP) Chavez Niño MD Feb 03, 2018 17:31
[2018-02-03] MEDS ORDERED: ONDANSETRON ODT4 MG BC (17:32)
[2018-02-03 19:13] VITALS: BP 140/78
[2018-02-03 20:13] VITALS: BP 140/78
== END 2018-02-03 20:19 ==
LOC: EDBD 14:15 → EMR 14:49
DX: R11.0 Nausea (principal); R50.9 Fever, unspecified; I10 Essential (primary) hypertension; F32.9 Major depressive disorder, single episode, unspecified
CPT/HCPCS: 36415; 80053; 81003; 83690; 85025; 96374; 96375; 99284; J2405; S0028

== ENCOUNTER → 2018-04-01 | Emergency (ER) | payer MEDICARE ==
[~2018-04-01] VITALS: Ht 162.6 cm; Wt 49.9 kg
[2018-04-01] VITALS (7 sets, daily range): BP systolic 120–188; BP diastolic 56–81
[~2018-04-01] MED LIST changes: +ONDANSETRON ODT4 MG BC
--- NOTE | 2018-04-01 11:03 | Emergency Room Report ---
History of Present Illness General Chief Complaint: Multiple Trauma/Fall Source: Patient, Medical Record Present Illness HPI Patient is a 77-year-old female who presented after a fall at assisted. The patient was having bilateral knee pain. She denies any other locations pain. Allergies: Coded Allergies: No Known Allergies (Unverified , 12/02/14) Patient History Now: No Reviewed Nursing Documentation: PMH: Agreed; PSxH: Agreed Nursing Documentation-PMH Past Medical History: No History, Except For Hx Hypertension: Yes Hx Cancer: No Hx Gastrointestinal Problems: No Hx Neurological Problems: No Review of Systems All Other Systems: negative except mentioned in HPI Physical Exam Vital Signs Date Time Temp Pulse Resp B/P (MAP) Pulse Ox O2 Delivery O2 Flow Rate FiO2 04/01/18 10:47 98.2 77 18 160/81 96 Room Air General Appearance: well appearing, no apparent distress, alert, GCS 15 Head: normocephalic, atraumatic ENT: hearing grossly normal, normal voice Neck: full range of motion, supple Respiratory: no respiratory distress, speaking full sentences Musculoskeletal: no calf tenderness Neurologic: normal gait Psychiatric: mood/affect normal Skin: no rash Medical Decision Making Diagnostic Impression: Primary Impression: Fall Additional Impression: Arthritis Last Vital Signs Date Time Temp Pulse Resp B/P (MAP) Pulse Ox O2 Delivery O2 Flow Rate FiO2 04/01/18 10:47 98.2 77 18 160/81 96 Room Air Yovany Mcdonald MD Apr 01, 2018 11:03
--- NOTE | 2018-04-01 12:24 | Diagnostic Imaging Report ---
EXAM: CT Head Without Intravenous Contrast CLINICAL HISTORY: PAIN TECHNIQUE: Axial computed tomography images of the head/brain without intravenous contrast. CTDI is 70.38 mGy and DLP is 1372 mGy-cm. One or more of the following dose reduction techniques were used: automated exposure control, adjustment of the mA and/or kV according to patient size, use of iterative reconstruction technique. COMPARISON: No relevant prior studies available. FINDINGS: Brain: No hemorrhage. No edema. Involutional changes with small vessel disease Ventricles: No ventriculomegaly. Bones/joints: No acute fracture. Soft tissues: Unremarkable. Sinuses: No acute sinusitis. Mastoid air cells: No mastoid effusion. IMPRESSION: No acute intracranial process.
[2018-04-01 12:48] LABS: APPEARANCE,URINE CLEAR; BILIRUBIN, URINE NEGATIVE (NEGATIVE); GLUCOSE, URINE (UA) NEGATIVE (NEGATIVE); KETONES,URINE 1+ (NEGATIVE); LEUKOCYTE ESTERASE ,URINE 1+ (NEGATIVE); NITRITE,URINE NEGATIVE (NEGATIVE); PH,URINE 6 (4.5-8.0); PROTEIN,URINE 2+ (NEGATIVE); UROBILINOGEN,URINE NORMAL MG/DL (0.0-1.0)
[2018-04-01 12:53] LABS: COLOR,URINE YELLOW
--- NOTE | 2018-04-02 08:25 | Diagnostic Imaging Report ---
Indication: Pain, status post fall Technique: 3 views of the right knee Comparison: None Findings: No acute fractures. No dislocations. The joint spaces are preserved Impression: Negative
--- NOTE | 2018-04-02 08:26 | Diagnostic Imaging Report ---
Indication: Pain, status post fall Technique: 3 views of the left knee Comparison: None Findings: No suprapatellar effusion. No acute fracture. No dislocation. The joint spaces are preserved Impression: No acute process
== END | disposition home or self-care (01) ==
LOC: EDUNIT# 10:41 → EDBD 10:42 → EMR 11:12
DX: M25.562 Pain in left knee (principal); M25.561 Pain in right knee; I10 Essential (primary) hypertension
CPT/HCPCS: 70450; 81003; 99284

== ENCOUNTER 2019-12-28 14:33 | Inpatient (IN) | payer MEDICARE, MEDICAID ==
[~2019-12-28] VITALS: Ht 162.6 cm; Wt 68.0 kg
[2019-12-28 14:39] VITALS: BP 124/70
--- NOTE | 2019-12-28 14:39 | NUR ---
ED Nurse Note: Patient [facility] from [facility] c/o increased dizziness and weakness. Per pt, she started feeling dizzy while standing and reports having syncopal feeling. Denies pain or any discomfort at this time. AAOX4, on room air. Afebrile. Pt placed on classroom monitor. ERMD at bedside.
[2019-12-28] MEDS ORDERED: NORMODYNE200 MG ORAL (14:42)
[2019-12-28] MEDS ORDERED: GABAPENTIN100 MG ORAL (14:42)
[2019-12-28] MEDS ORDERED: QUETIAPINE FUMA50 MG ORAL (14:45)
--- NOTE | 2019-12-28 14:50 | NUR ---
ED Nurse Note: IV line established. Blood and covid swab sent to lab.
--- NOTE | 2019-12-28 14:57 | Emergency Room Report ---
History of Present Illness General Chief Complaint: Generalized Weakness Source: Patient Present Illness HPI Patient is a 79-year-old female sent in from [facility] for increased dizziness. Patient reports having near syncopal feeling.Patient states that she began feeling dizzy while standing. States she has had prior syncopal episodes in the past. Denies any discomfort to her chest or back or any palpitations. Denies any abdominal pain or dysuria. Denies recent illness. Previous history of hypertension and is taking labetalol as well as psychiatric medications. Allergies: Coded Allergies: No Known Allergies (Unverified , 12/02/14) COVID-19 Screening Contact w/high risk pt: No Experienced COVID-19 symptoms?: No COVID-19 Testing performed [employer]: No Patient History Past Medical History: see triage record Reviewed Nursing Documentation: PMH: Agreed; PSxH: Agreed Nursing Documentation-PMH Hx Hypertension: Yes Hx Cancer: No Hx Gastrointestinal Problems: No Hx Neurological Problems: No Review of Systems All Other Systems: negative except mentioned in HPI Physical Exam Vital Signs Date Time Temp Pulse Resp B/P (MAP) Pulse Ox O2 Delivery O2 Flow Rate FiO2 12/28/19 14:34 98.4 70 14 124/70 (88) 97 Room Air Sp02 EP Interpretation: reviewed, normal General Appearance: normal inspection, well appearing, no apparent distress, alert, GCS 15 Head: atraumatic ENT: normal ENT inspection, hearing grossly normal, normal voice Neck: normal inspection, full range of motion, supple, no bony tend Respiratory: normal inspection, lungs clear, normal breath sounds, no respiratory distress, no retraction, no wheezing Cardiovascular #1: regular rate, rhythm, no edema Gastrointestinal: normal inspection, normal bowel sounds, non tender, soft, no guarding, no hernia Genitourinary: no CVA tenderness Musculoskeletal: normal inspection, back normal, normal range of motion Neurologic: alert, motor strength/tone normal, inventory and pricing associate III-XII nml as tested, oriented x3, responsive, speech normal, normal inspection Psychiatric: normal inspection, judgement/insight normal, mood/affect normal Medical Decision Making Diagnostic Impression: Primary Impression: Near syncope Additional Impressions: Abnormal EKG Mild bibasilar atelectasis ER Course Patient presented for near syncope. Differential diagnosis include was not limited to anemia, arrhythmia, myocardial infarction, sepsis, coronavirus section among others. Patient was noted to have previous hospitalization at this facility. EKG compared to previous showed reduced P wave size. White blood count was normal and patient was not anemic.Patient was discussed with Dr. Donovan and patient will be observed as inpatient due to recent near syncopal episode. Chest x-ray 1 view showed bibasilar opacities possible atelectasis patient was noted to have normal oxygen saturation and does not appear to be in any respiratory distress. Labs Test 12/28/19 14:50 12/28/19 15:45 White Blood Count 6.5 K/UL (4.8-10.8) Red Blood Count 4.17 M/UL (4.20-5.40) Hemoglobin 13.0 G/DL (12.0-16.0) Hematocrit 38.8 % (37.0-47.0) Mean Corpuscular Volume 93 FL (80-99) Mean Corpuscular Hemoglobin 31.1 PG (27.0-31.0) Mean Corpuscular Hemoglobin Concent 33.4 G/DL (32.0-36.0) Red Cell Distribution Width 13.1 % (11.6-14.8) Platelet Count 249 K/UL (150-450) Mean Platelet Volume 6.8 FL (6.5-10.1) Neutrophils (%) (Auto) 58.4 % (45.0-75.0) Lymphocytes (%) (Auto) 28.6 % (20.0-45.0) Monocytes (%) (Auto) 8.7 % (1.0-10.0) Eosinophils (%) (Auto) 3.0 % (0.0-3.0) Basophils (%) (Auto) 1.2 % (0.0-2.0) Sodium Level 141 MMOL/L (136-145) Potassium Level 4.1 MMOL/L (3.5-5.1) Chloride Level 103 MMOL/L (98-107) Carbon Dioxide Level 28 MMOL/L (21-32) Anion Gap 10 mmol/L (5-15) Blood Urea Nitrogen 10 mg/dL (7-18) Creatinine 1.0 MG/DL (0.55-1.30) Estimat Glomerular Filtration Rate 53.8 mL/min (>60) Glucose Level 73 MG/DL (74-106) Lactic Acid Level 1.00 mmol/L (0.4-2.0) Calcium Level 9.8 MG/DL (8.5-10.1) Phosphorus Level 4.0 MG/DL (2.5-4.9) Magnesium Level 2.2 MG/DL (1.8-2.4) Total Bilirubin 0.3 MG/DL (0.2-1.0) Aspartate Amino Transf (AST/SGOT) 17 U/L (15-37) Alanine Aminotransferase (ALT/SGPT) 16 U/L (12-78) Alkaline Phosphatase 79 U/L (46-116) Total Creatine Kinase 68 U/L (26-308) Creatine Kinase MB 1.1 NG/ML (0.0-3.6) Creatine Kinase MB Relative Index 1.6 Troponin I 0.000 ng/mL (0.000-0.056) Pro-B-Type Natriuretic Peptide 279 pg/mL (0-125) Total Protein 7.9 G/DL (6.4-8.2) Albumin 3.9 G/DL (3.4-5.0) Globulin 4.0 g/dL Albumin/Globulin Ratio 1.0 (1.0-2.7) EKG Diagnostic Results Rate: normal Rhythm: NSR ST Segments: other Last Vital Signs Date Time Temp Pulse Resp B/P (MAP) Pulse Ox O2 Delivery O2 Flow Rate FiO2 12/28/19 14:34 98.4 70 14 124/70 (88) 97 Room Air Status: improved Disposition: PLACE IN OBSERVATION Condition: Stable Yovany Mcdonald MD Dec 28, 2019 14:57
--- NOTE | 2019-12-28 15:25 | NUR ---
ED Nurse Note: Xray at bedside.
[2019-12-28 15:30] LABS: BASOPHILS % (AUTO) 1.2 % (0.0-2.0); HEMATOCRIT 38.8 % (37.0-47.0); LYMPHOCYTES % (AUTO) 28.6 % (20.0-45.0); MEAN CORPUSCULAR VOLUME 93 FL (80-99); MONOCYTES % (AUTO) 8.7 % (1.0-10.0); NEUTROPHILS % (AUTO) 58.4 % (45.0-75.0); PLATELET COUNT 249 K/UL (150-450); RED BLOOD COUNT 4.17 M/UL (4.20-5.40); RED CELL DISTRIBUTION WIDTH 13.1 % (11.6-14.8); WHITE BLOOD COUNT 6.5 K/UL (4.8-10.8)
[2019-12-28 15:42] LABS: CALCIUM 9.8 MG/DL (8.5-10.1); POTASSIUM 4.1 MMOL/L (3.5-5.1)
--- NOTE | 2019-12-28 15:45 | NUR ---
ED Nurse Note: Urine collected and sent to lab.
[2019-12-28 15:55] LABS: ALBUMIN 3.9 G/DL (3.4-5.0); BILIRUBIN,TOTAL 0.3 MG/DL (0.2-1.0); CKMB 1.1 NG/ML (0.0-3.6)
--- NOTE | 2019-12-28 15:59 | Diagnostic Imaging Report ---
EXAM: XR Chest, 1 View CLINICAL HISTORY: SOB TECHNIQUE: Frontal view of the chest. COMPARISON: None available FINDINGS: Hardware: None. Lungs/pleura: Bibasilar opacities may represent atelectasis, but infectious/inflammatory process is not excluded. No pleural effusion or pneumothorax. Heart/mediastinum: Borderline size of the cardiac silhouette. Atherosclerotic calcifications in the aorta. Soft tissues: Unremarkable. Bones: No acute fracture. Upper abdomen: Normal. IMPRESSION: Bibasilar opacities may represent atelectasis, but infectious/inflammatory process is not excluded.
[2019-12-28 16:14] LABS: BILIRUBIN, URINE NEGATIVE (NEGATIVE); COLOR,URINE PALE YELLOW; GLUCOSE, URINE (UA) NEGATIVE (NEGATIVE); KETONES,URINE NEGATIVE (NEGATIVE); LEUKOCYTE ESTERASE ,URINE 3+ (NEGATIVE); NITRITE,URINE NEGATIVE (NEGATIVE); PH,URINE 7 (4.5-8.0); PROTEIN,URINE NEGATIVE (NEGATIVE); UROBILINOGEN,URINE NORMAL MG/DL (0.0-1.0)
[2019-12-28 16:16] LABS: APPEARANCE,URINE SLIGHTLY CLOUDY
[2019-12-28] MEDS ORDERED: Milk of Magnesia 30ml Ud ORAL PRN (16:30)
[2019-12-28] MEDS ORDERED: Zolpidem 5mg tab ORAL PRN (16:30)
[2019-12-28] MEDS ORDERED: Nitroglycerin Subl 0.4mg tab SL PRN (16:30)
[2019-12-28] MEDS: cefTRIAXone 1 GM in D5W 55 ML IVPB SCH (16:44)
[2019-12-28 17:28] VITALS: BP 149/86
--- NOTE | 2019-12-28 17:28 | NUR ---
ED Nurse Note: Dinner tray provided.
[2019-12-28 19:29] VITALS: BP 145/84
--- NOTE | 2019-12-28 19:30 | NUR ---
ED Nurse Note: Received patient from loy núñez. patient ao4 with no acute signs of distress; presents with episodes of confusion. discussed plan of care; aware of pending admission.
--- NOTE | 2019-12-28 19:41 | NUR ---
TRANSFER TO FLOOR: Patient transferred to [place] [id number] as ordered, per md tessa. Report given to panda núñez. patient stable for transport. transferred to unit via gurney with rn and kirit. belongings and admission packet sent with patient.
--- NOTE | 2019-12-28 20:00 | NUR ---
NURSE NOTES: Patient received from Jonah Alegre HAND STITCHER. Patient was transferred to [address] [place], [place] [id number] from ER via [facility] without incident. No signs of acute distress noted. Denies pain at this time. A/O x 3 with periods of forgetfulness. Ambulates with assistance. Checked IV site, patent and flushed. No erythema, bleeding or infiltration noted. Belongings checked with transferring RN. Skin assessment performed. Perineal redness noted, will take wound care photo. Bed at lowest position, brakes on side rails x 2. Call light within reach. Will continue to monitor.
[2019-12-28] MEDS: QUEtiapine 200mg tab ORAL SCH (20:42)
[2019-12-28] MEDS: Heparin 5000 units/ml inj SUBQ SCH (20:52)
[2019-12-28 22:00] VITALS: BP 187/64
[2019-12-28] MEDS ORDERED: OMEPRAZOLE20 M2 ORAL (22:21)
[2019-12-29] VITALS: BP 178/80
--- NOTE | 2019-12-29 00:13 | NUR ---
NURSE NOTES: Called Dr. Pabon to inform him that patient's blood pressure is 183/93. Awaiting callback.
--- NOTE | 2019-12-29 01:13 | NUR ---
NURSE NOTES: Received order from Dr. Morley for Norvasc 10 mg PO daily and to continue Lopressor order by Dr. Morley. Noted and carried out.
--- NOTE | 2019-12-29 01:52 | NUR ---
NURSE NOTES: Unable to scan Norvasc 10 mg PO. MANUELITO Aleman witnessed administration of Norvasc 10 mg PO medication.
[2019-12-29 04:00] VITALS: BP 157/69
[2019-12-29 07:31] LABS: BASOPHILS % (AUTO) 0.8 % (0.0-2.0); HEMATOCRIT 37.8 % (37.0-47.0); HEMOGLOBIN 12.4 G/DL (12.0-16.0); LYMPHOCYTES % (AUTO) 36.8 % (20.0-45.0); MEAN CORPUSCULAR VOLUME 91 FL (80-99); MONOCYTES % (AUTO) 6.5 % (1.0-10.0); NEUTROPHILS % (AUTO) 52.8 % (45.0-75.0); PLATELET COUNT 253 K/UL (150-450); RED BLOOD COUNT 4.16 M/UL (4.20-5.40); RED CELL DISTRIBUTION WIDTH 12.2 % (11.6-14.8); WHITE BLOOD COUNT 7.4 K/UL (4.8-10.8)
--- NOTE | 2019-12-29 07:31 | NUR ---
NURSE HAND-OFF REPORT: Important Events on Shift:[Patient is confused. Does not know where she is at and claims that she is in her house. Patient will stand up from bed and needs to be reoriented multiple times. Patient had an elevated blood pressure with an SBP of 180. Patient's SBP is now at 150 after giving Norvasc. ] Patient Status: [] Diet: [] Pending Orders: [] Pending Results/Labs:[MRSA, VRE] Pending MD notification:[] Latest Vital Signs: Temperature 97.3 , Pulse 67 , B/P 157 /69 , Respiratory Rate 20 , O2 SAT 93 , Room Air, O2 Flow Rate . Vital Sign Comment: [] EKG Rhythm: Sinus Rhythm Rhythm change?: N MD Notified?: - MD Response: Latest Carmona Fall Score: 50 Fall Risk: High Risk Safety Measures: Call light Within Reach, Bed Alarm , Side Rails Side Rails x2, Bed position Low and Locked. Fall Precautions: Yellow Socks Yellow Gown Patient Fall Education Report given to [MANUELITO Trinidad].
[2019-12-29 07:57] LABS: ALANINE AMINOTRANSFERASE 16 U/L (12-78); ALBUMIN 3.4 G/DL (3.4-5.0); ALBUMIN/GLOBULIN RATIO 0.9 (1.0-2.7); ALKALINE PHOSPHATASE 66 U/L (46-116); ANION GAP 8 mmol/L (5-15); ASPARTATE AMINO TRANSFERASE 15 U/L (15-37); BILIRUBIN,TOTAL 0.2 MG/DL (0.2-1.0); BLOOD UREA NITROGEN 18 mg/dL (7-18); CALCIUM 9.6 MG/DL (8.5-10.1); CARBON DIOXIDE 28 MMOL/L (21-32); CHLORIDE 105 MMOL/L (98-107); CHOLESTEROL 243 MG/DL (< 200); CREATININE 0.9 MG/DL (0.55-1.30); HDL CHOLESTEROL 46 MG/DL (40-60); POTASSIUM 4.1 MMOL/L (3.5-5.1); SODIUM 141 MMOL/L (136-145); TRIGLYCERIDES 152 MG/DL (30-150)
[2019-12-29 08:00] VITALS: BP 135/76
[2019-12-29] MEDS ORDERED: Depakote ER 500mg tab ORAL SCH (09:00)
[2019-12-29] MEDS: Aspirin Baby 81mg ORAL SCH (09:34)
[2019-12-29] MEDS: Docusate 100mg cap ORAL SCH ×2 (09:34→17:24)
[2019-12-29] MEDS: Citalopram Hydrobromide 10mg Tab ORAL SCH (09:34)
[2019-12-29] MEDS: Heparin 5000 units/ml inj SUBQ SCH ×2 (09:36→20:59)
[2019-12-29 11:52] VITALS: BP 121/77
--- NOTE | 2019-12-29 13:38 | NUR ---
NURSE NOTES: Patient transferred from [facility], received report from Vivi/MANUELITO. Patient in stable condition, alert and oriented X3. No dizziness. Patient oriented to call light, restroom. Able to make needs known, call light within reach.
--- NOTE | 2019-12-29 13:58 | NUR ---
CASE MANAGEMENT:INITIAL REVIEW 79 YR OLD FEMALE BIBA FROM [facility] CC;GENERALIZED WEAKNESS SI;NEAR SYNCOPE. ABNORMAL EKG. ATELECTASIS. 98.4 70 14 198/71 96% ON RA BG 73 UA+ LEUKOCYTE ESTERASE, WBC, BACTERIA COVID-19 RAPID ~ NEGATIVE CXR ~ Bibasilar opacities may represent atelectasis, but infectious/inflammatory process is not excluded. IS;IVF NS BOLUS ADMITTED TO [facility] TRANSFERRED TO TELE 12/29/19 @ 1338 TELE STATUS DCP;FROM [facility]
--- NOTE | 2019-12-29 14:44 | History and Physical Report ---
DATE OF ADMISSION: 12/28/2019 CHIEF COMPLAINT AND REASON FOR HOSPITALIZATION: The patient is a 79-year-old lady admitted with dizziness and syncope or near syncope. HISTORY OF PRESENT ILLNESS: The patient is a poor historian, resident of assisted living facility. She is taking assisted psychotropic medications, history of hypertension. She apparently complained of dizziness while standing and has had syncopal episodes in the past, and had syncopal or near syncopal episode and was transferred to the hospital for the above problems. She is a poor historian and does not remember exactly how she is got here or what happened. When asked about chest pain, she stated she has had chest pain in the past but none recently. She cannot describe the nature of the chest pain. There is no palpitations or shortness of breath. There is no history of tinnitus or whirling sensation. ALLERGIES: None known. MEDICATIONS: Aspirin 325 daily, citalopram 10 mg daily 20 mg daily, DSS 100 mg b.i.d., gabapentin 300 mg t.i.d., labetalol 200 mg every 12 hours, omeprazole twice a day, Seroquel 200 mg at bedtime, Seroquel 50 mg b.i.d., zolpidem 5 mg at bedtime HABITS: She smoked in the distant past, not for many years. She uses marijuana intermittently. No alcohol or injectable drugs. PAST SURGICAL HISTORY: None. REVIEW OF SYSTEMS: HEAD, EYES, EARS, NOSE, AND THROAT: Her vision and hearing is good. ENDOCRINE: She is not aware of any diabetes or thyroid disease. PULMONARY: Prior smoker. No chronic cough or asthma. CARDIAC: See history of present illness. GASTROINTESTINAL: No nausea, vomiting, abdominal pain. GENITOURINARY: No dysuria or hematuria. NEUROLOGIC: No history of seizures, stroke, or focal weakness. PHYSICAL EXAMINATION: GENERAL: The patient is alert lady, in no acute distress. VITAL SIGNS: Temperature 97.6, pulse 63, respiratory rate 21, blood pressure 135/76. Note that she did have some orthostatic hypotension but I do not have those numbers in front of me. HEAD, EYES, EARS, NOSE, AND THROAT: Sclerae are nonicteric. Ocular motions intact in all directions. Oral mucosa moist. Teeth are in poor repair. NECK: No adenopathy. LUNGS: Clear. HEART: Regular rhythm. No murmur. ABDOMEN: Soft. No organomegaly or masses. EXTREMITIES: No edema, cyanosis or clubbing. NEUROLOGIC: She is alert within clear speech. Ocular motions intact in all directions. Pupils are reactive. Smile is symmetric. Tongue is midline. She moves all extremities equally. Xojipc-vpgc-vmatuo testing shows some mild intention tremor. There is no EPS. LABORATORY DATA: Pertinent labs show white count of 6.5, hemoglobin 13. Normal electrolytes. BUN 10, creatinine 1, glucose 73 and repeat 90. Troponin is 0. BNP 279. Cholesterol 243, triglyceride 152. Urinalysis shows too numerous to count white cells. Chest x-ray unremarkable. IMPRESSION: 1. Syncope or near syncope, possibly from orthostatic hypotension and she has had at least one orthostatic blood pressure. 2. Pyuria likely UTI. 3. Atelectasis on chest x-ray. 4. Cognitive impairment. She is able to identify president by his hair color but not name. She is not able to give the month, year, or address. 5. 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 6. History of . PLAN: We will watch orthostatic blood pressure and taper off away labetalol. Watch for any toxicity of the medications. She was started on ceftriaxone for UTI. We will follow up with serial clinical examinations. Nelson Morley M.D. DR: Bertha JOB#: [id number] CC:
[2019-12-29 16:00] VITALS: BP 125/50
[2019-12-29] MEDS: cefTRIAXone 1 GM in D5W 55 ML IVPB SCH (16:02)
--- NOTE | 2019-12-29 19:38 | NUR ---
NURSE HAND-OFF REPORT: Important Events on Shift:Transferred from YOVANNY Patient Status: Stable Diet: No added salt Pending Orders: Pending Results/Labs:CBC, CMP Pending MD notification: Latest Vital Signs: Temperature 96.1 , Pulse 68 , B/P 125 /50 , Respiratory Rate 20 , O2 SAT 97 , Room Air, O2 Flow Rate . Vital Sign Comment: Stable EKG Rhythm: SR w/ 1st AVB, SA Rhythm change?: N MD Notified?: - MD Response: Latest Carmona Fall Score: 50 Fall Risk: High Risk Safety Measures: Call light Within Reach, Bed Alarm Zone 2, Side Rails Side Rails x2, Bed position Low and Locked. Fall Precautions: Yellow Socks Yellow Gown Patient Fall Education Report given to Rosey/MANUELITO.
--- NOTE | 2019-12-29 19:45 | NUR ---
NURSE NOTES: Received report from Deyanira/MANUELITO Talamantes. Patient is awake on bed, alert and oriented x 2-3, forgetful but follows command. monitoring and evaluation advisor is in place, shows sinus rhythm and denies chest pain at this time. On room air, sating 96% with no shortness of breath reported. IV site is on left AC g-20 saline lock that is patent and intact. Safety measures are in place, bed in lowest and locked position side rails-up x 2. Call light button and bedside table within reach, instructed to call for any assistance needed. Will continue plan of care.
[2019-12-29 20:00] VITALS: BP 123/59
[2019-12-29] MEDS: QUEtiapine 200mg tab ORAL SCH (20:38)
[2019-12-30] VITALS: BP 122/68
[2019-12-30 04:00] VITALS: BP 129/61
--- NOTE | 2019-12-30 07:42 | NUR ---
NURSE HAND-OFF REPORT: Important Events on Shift: Patient has been resting well comfortably the whole shift. Patient Status: Patient is awake on bed, eating her breakfast. No complaints made at this time, plan of care endorsed. Diet: No added salt Pending Orders: none Pending Results/Labs: none Pending MD notification: none Latest Vital Signs: Temperature 98.5 , Pulse 61 , B/P 129 /61 , Respiratory Rate 20 , O2 SAT 97 , Room Air, O2 Flow Rate . Vital Sign Comment: EKG Rhythm: SB with 1st degree AVB Rhythm change?: N MD Notified?: N - MD Response: Latest Carmona Fall Score: 50 Fall Risk: High Risk Safety Measures: Call light Within Reach, Bed Alarm Zone 2, Side Rails Side Rails x2, Bed position Low and Locked. Fall Precautions: Yellow Socks Yellow Gown Door Sign Patient Fall Education Report given to MANUELITO Pardo.
[2019-12-30 08:00] VITALS: BP 126/73
--- NOTE | 2019-12-30 08:00 | NUR ---
NURSE NOTES: Pt awake/alert in bed breathing easily on room air, denies SOB and denies pain at this time. Vital signs stable with SR @ 64 on monitor. IV access LAC flushed with 10 ml NS and locked. Bed left in low position, side rails up x 3 and call light left near pt's hand.
[2019-12-30] MEDS: Aspirin Baby 81mg ORAL SCH (09:06)
[2019-12-30] MEDS: Citalopram Hydrobromide 10mg Tab ORAL SCH (09:06)
[2019-12-30] MEDS: Docusate 100mg cap ORAL SCH ×2 (09:06→17:32)
[2019-12-30] MEDS: Heparin 5000 units/ml inj SUBQ SCH ×2 (09:09→20:15)
[2019-12-30 09:11] LABS: BASOPHILS % (AUTO) 1.1 % (0.0-2.0); HEMATOCRIT 39.6 % (37.0-47.0); HEMOGLOBIN 13.2 G/DL (12.0-16.0); LYMPHOCYTES % (AUTO) 30.3 % (20.0-45.0); MEAN CORPUSCULAR VOLUME 92 FL (80-99); MONOCYTES % (AUTO) 4.6 % (1.0-10.0); PLATELET COUNT 265 K/UL (150-450); RED BLOOD COUNT 4.29 M/UL (4.20-5.40); RED CELL DISTRIBUTION WIDTH 13.2 % (11.6-14.8); WHITE BLOOD COUNT 6.8 K/UL (4.8-10.8)
[2019-12-30 09:58] LABS: CALCIUM 9.3 MG/DL (8.5-10.1); POTASSIUM 4.9 MMOL/L (3.5-5.1)
[2019-12-30 12:00] VITALS: BP 150/65
--- NOTE | 2019-12-30 14:44 | General Progress Note ---
Assessment/Plan Assessment/Plan: m/p Vaginitis. UA sterile leukocyturia. Add Diflucan. Subjective Allergies: Coded Allergies: No Known Allergies (Unverified , 12/02/14) Subjective c/o vaginal itch Objective Last 24 Hour Vital Signs Date Time Temp Pulse Resp B/P (MAP) Pulse Ox O2 Delivery O2 Flow Rate FiO2 12/30/19 12:00 62 12/30/19 09:00 Room Air 12/30/19 08:00 76 12/30/19 04:00 98.5 61 20 129/61 (83) 97 12/30/19 04:00 53 12/30/19 00:00 60 12/30/19 00:00 98.0 65 20 122/68 (86) 94 12/29/19 21:00 Room Air 12/29/19 20:00 58 12/29/19 20:00 97.7 60 20 123/59 (80) 97 12/29/19 19:30 75 63 68 12/29/19 16:00 96.1 68 20 125/50 (75) 97 12/29/19 16:00 62 Intake and Output 12/29/19 12/30/19 19:00 07:00 Intake Total 55 ml 400 ml Balance 55 ml 400 ml Intake Oral 400 ml IV Total 55 ml # Voids 3 Laboratory Tests 12/30/19 08:30: White Blood Count 6.8, Red Blood Count 4.29, Hemoglobin 13.2, Hematocrit 39.6, Mean Corpuscular Volume 92, Mean Corpuscular Hemoglobin 30.7, Mean Corpuscular Hemoglobin Concent 33.3, Red Cell Distribution Width 13.2, Platelet Count 265, Mean Platelet Volume 6.3L, Neutrophils (%) (Auto) 61.0, Lymphocytes (%) (Auto) 30.3, Monocytes (%) (Auto) 4.6, Eosinophils (%) (Auto) 3.0, Basophils (%) (Auto ) 1.1, Sodium Level 142, Potassium Level 4.9, Chloride Level 104, Carbon Dioxide Level 25, Anion Gap 13, Blood Urea Nitrogen 17, Creatinine 1.0, Estimat Glomerular Filtration Rate 53.8, Glucose Level 116H, Calcium Level 9.3 Height (Feet): 5 Height (Inches): 4.00 Weight (Pounds): 110 Objective CV RR lungs CTA Abd SNT. BS + E No CCE Darci Pabon MD Dec 30, 2019 14:44
[2019-12-30] MEDS ORDERED: Fluconazole 100mg tab ORAL SCH (15:00)
[2019-12-30 16:00] VITALS: BP 141/62
--- NOTE | 2019-12-30 16:50 | NUR ---
NURSE NOTES: Pt transferred to [facility] in pt's bed with chart, labels and IV poles and pt's dinner tray. Pt vital signs stable. Report given to MANUELITO Rousseau.
[2019-12-30] MEDS ORDERED: Nitroglycerin Subl 0.4mg tab SL PRN (17:00)
--- NOTE | 2019-12-30 17:12 | NUR ---
NURSE NOTES: Report received from Edvin BILLINGS. Patient transferred from Telemetry, AxOx2-3, confused but redirectable, not in pain or distress. Vitals stable. PIV on left AC patent and intact. Pt is ambulatory and continent. Belongings checked at bedside. Skin is intact. Bed low and locked, siderails up x2, call light placed within reach and instructed to call nurse for assistance. Will continue to monitor.
[2019-12-30] MEDS ORDERED: Milk of Magnesia 30ml Ud ORAL PRN (17:30)
--- NOTE | 2019-12-30 19:20 | NUR ---
NURSE HAND-OFF: Important Events on Shift: Pt transferred from Telemetry, no adversee events noted Patient Status: Stable Diet: NADER Pending Orders: None Pending Results/Labs: Blood CS pending results Pending MD notification: None Latest Vital Signs: Temperature 98.4 , Pulse 96 , B/P 141 /62 , Respiratory Rate 20 , O2 SAT 98 , Room Air, O2 Flow Rate . Vital Sign Comment: Latest Carmona Fall Score: 35 Fall Risk: Medium Risk Safety Measures: Call light Within Reach, Bed Alarm Zone 2, Side Rails Side Rails x2, Bed position Low and Locked. Fall Precautions: Yellow Socks Yellow Gown Door Sign Patient Fall Education Report given to Symone BILLINGS.
--- NOTE | 2019-12-30 19:44 | NUR ---
NURSE NOTES: Received patient awake, verbal, forgetful, ambulates, no SOB noted.
[2019-12-30 20:10] VITALS: BP 160/74
[2019-12-30] MEDS ORDERED: QUEtiapine 200mg tab ORAL SCH (21:00)
[2019-12-30] MEDS ORDERED: Zolpidem 5mg tab ORAL PRN (21:00)
[2019-12-31] VITALS: BP 141/59
[2019-12-31 04:00] VITALS: BP 139/66
--- NOTE | 2019-12-31 07:16 | NUR ---
HAND-OFF: Report given to Crow Cornad RN.
--- NOTE | 2019-12-31 07:37 | NUR ---
NURSE NOTES: Received report from MANUELITO Bolaños. Patient seen in bed eating breakfast, AAOx2. Patient is confused, but able to follow simple direction with constant reminders. Patient is able to make needs IV site patent and intact. Patient denies pain or SOB at this time. Patient is fall risk, RN educated patient on fall, patient has yellow socks and gown, and was instructed to stay in bed and use call light before ambulating for assistance. Bed is locked and placed in lowest position. Call light within reach. Will continue to monitor
[2019-12-31 08:00] VITALS: BP 130/66
[2019-12-31] MEDS: Docusate 100mg cap ORAL SCH ×2 (08:23→17:35)
[2019-12-31] MEDS: Heparin 5000 units/ml inj SUBQ SCH ×2 (08:24→21:00)
[2019-12-31] MEDS ORDERED: Aspirin Baby 81mg ORAL SCH (09:00)
[2019-12-31] MEDS ORDERED: Citalopram Hydrobromide 10mg Tab ORAL SCH (09:00)
--- NOTE | 2019-12-31 11:25 | NUR ---
NURSE NOTES: Patient refuses to put on yellow gown and socks. RN reminded patient to stay in bed and use call light before ambulating for assistance
[2019-12-31 12:00] VITALS: BP 116/77
--- NOTE | 2019-12-31 12:15 | Initial Psychiatric Evaluation ---
Psychiatry Consultation Psychiatry Consultation Chief Complaint: Generalized Weakness Allergies: Coded Allergies: No Known Allergies (Unverified , 12/02/14) Medication History Scheduled Aspirin (Ecpirin), 325 MG PO daily, (Reported) Citalopram Hydrobromide* (Citalopram Hbr*), 20 MG ORAL DAILY, (Reported) Docusate Sodium* (Colace*), 100 MG ORAL TWICE A DAY, (Reported) Gabapentin* (Gabapentin*), 300 MG ORAL THREE TIMES A DAY, (Reported) Labetalol HCl (Labetalol HCl), 200 MG ORAL EVERY 12 HOURS, (Reported) Omeprazole (Omeprazole), 20 MG ORAL DAILY, (Reported) Quetiapine Fumarate* (Quetiapine Fumarate*), 50 MG ORAL TWICE A DAY, (Reported) Scheduled PRN Zolpidem Tartrate* (Zolpidem Tartrate*), 5 MG ORAL BEDTIME PRN for sleep, (Reported) Discontinued Medications Divalproex Sodium* (Depakote Er*), 500 MG ORAL daily, (Reported) Discontinued Reason: Pt stopped taking med Patient History Limited by: medical condition History Provided By: Patient, Medical Record, PMD Objective Data Height (Feet): 5 Height (Inches): 4.00 Weight (Pounds): 110 Additional Comments: alert and oriented times self, place, situation, did not know the date. Mood is anxious. Affect is blunted, congruent with mood. Thought process is concrete. Thought content, no suicidal or homicidal ideation. Cognition is impaired. Insight and judgment are limited. ASSESSMENT: Slinger I Anxiety disorder. Cognitive impairment. Major depressive disorder. Slinger II Slinger III Slinger IV Slinger V PLAN: 1. We will increase the Celexa to 40 mg in the morning. 2. Discontinue the Seroquel 200, continue the 50 mg at night. 3. Discussed with the nurse. Assessment/Plan Assessment/Plan: celexa 20 mg po qam dc seroquel 200 cont seroquel 50mg po qhs provided ro/st Diagnosis Slinger I: anxiety disorder MDD Luc Meadows MD Dec 31, 2019 12:15
--- NOTE | 2019-12-31 12:18 | NUR ---
NURSE NOTES: RN spoke to Magdalena cortez [employer] boat assembly supervisor, per Magdalena, they don't provide transportation, RN was told to arrange ambulance by if facility does not provide transportation. RN placed call to sister, unable to contact. Arranged transportation from [facility] c/o [facility]. ETA will be between 13:15- 13:30pm. RN endorsed to the primary nurse. Dr. zarate was paged again for discharge medications.Awaiting for return call.
--- NOTE | 2019-12-31 13:06 | NUR ---
NURSE NOTES: Dr. Quiñones called [facility] wildlife manager and per human services case manager Dr. Quiñones will do the med. recon. for patient to be discharged ,but did not give a time line of when he'll be able to complete it. RN previously called [facility] and initially set up the case picker time to 13;30, but RN called [facility] and spoke to Moose and confirmed to put patient on "will call" once patient is readt for case picker
--- NOTE | 2019-12-31 14:19 | Cardiology Report ---
APPROVED REPORT EKG Measurement Heart [id number] FL 194P23 [id number] <Conclusion> Normal sinus rhythm with sinus arrhythmia Normal ECG
[2019-12-31 16:00] VITALS: BP 121/84
[2019-12-31] MEDS ORDERED: cefTRIAXone 1 GM in D5W 55 ML IVPB SCH (16:30)
--- NOTE | 2019-12-31 16:58 | General Progress Note ---
Assessment/Plan Assessment/Plan: m/p Vaginitis. UA sterile leukocyturia. Add Diflucan. DC to B+C Subjective Allergies: Coded Allergies: No Known Allergies (Unverified , 12/02/14) Subjective c/o vaginal itch Objective Last 24 Hour Vital Signs Date Time Temp Pulse Resp B/P (MAP) Pulse Ox O2 Delivery O2 Flow Rate FiO2 12/31/19 16:00 97.6 72 20 121/84 (96) 95 12/31/19 12:00 97.0 86 19 116/77 (90) 96 12/31/19 09:00 Room Air 12/31/19 08:00 97.7 88 18 130/66 (87) 96 12/31/19 04:00 97.2 77 18 139/66 (90) 98 12/31/19 00:00 97.6 82 18 141/59 (86) 99 12/30/19 20:49 Room Air 12/30/19 20:42 75 78 76 12/30/19 20:10 97.9 75 18 160/74 (102) 96 12/30/19 19:09 64 71 65 Intake and Output 12/30/19 12/31/19 19:00 07:00 Intake Total 360 ml 360 ml Balance 360 ml 360 ml Intake Oral 360 ml Other 360 ml # Voids 2 2 Height (Feet): 5 Height (Inches): 4.00 Weight (Pounds): 110 Objective CV RR lungs CTA Abd SNT. BS + E No CCE Darci Pabon MD Dec 31, 2019 16:58
--- NOTE | 2019-12-31 17:08 | NUR ---
NURSE NOTES: Dr. Pabon came by and did discharge med reconciliation. acls specialist placed call to [facility] and set up the transportation @18:30pm.
--- NOTE | 2019-12-31 19:17 | NUR ---
NURSE NOTES: [facility] called and informed RN that patient will be picked up around 2014 to 2029 instead of 1830. Will endorse to next shift
--- NOTE | 2019-12-31 19:28 | NUR ---
NURSE HAND-OFF: Important Events on Shift: active discharge, [facility] will brass pickler patient around Patient Status: stable Diet: no added salt Pending Orders: Pending Results/Labs: Pending MD notification: Latest Vital Signs: Temperature 97.6 , Pulse 72 , B/P 121 /84 , Respiratory Rate 20 , O2 SAT 95 , Room Air, O2 Flow Rate . Vital Sign Comment: stable Latest Carmona Fall Score: 35 Fall Risk: Medium Risk Safety Measures: Call light Within Reach, Bed Alarm Zone 2, Side Rails Side Rails x2, Bed position Low and Locked. Fall Precautions: Yellow Socks Yellow Gown Door Sign Patient Fall Education Report given to MANUELITO Richards.
[2019-12-31 20:00] VITALS: BP 127/74
--- NOTE | 2019-12-31 21:26 | NUR ---
NURSE NOTES: The resident is alert and stable with her care and does not seem to be in any acute distress at this time. She was discharged from the Hospital and was pickup by [facility] to her resident in [facility]. The Resp is even and unlabored and the bilateral lung sounds are all clear on auscultation.The IV line in the left AC was d/c.
--- NOTE | 2020-01-01 07:00 | Consultation ---
DATE OF CONSULTATION: 12/31/2019 CONSULTING PHYSICIAN: Luc Meadows M.D. HISTORY OF PRESENT ILLNESS: This is a 79-year-old female with a history of multiple medical issues who has been admitted to the hospital for medical stabilization. The patient presents with anxiety and agitation. She is somewhat paranoid and has cognitive impairment. She daughters and and she was anxious and worried on that and states family. The patient is tangential and was unable to remain engaged throughout . She was given Seroquel. PAST PSYCHIATRIC HISTORY: Depression, anxiety, and she is currently on Celexa 20 mg in the morning. PAST MEDICAL HISTORY: As above. ALLERGIES: nkda SUBSTANCE ABUSE HISTORY: Denies any illicit drug use or alcohol. MENTAL STATUS EXAMINATION: The patient is alert and oriented times self, place, situation, did not know the date. Mood is anxious. Affect is blunted, congruent with mood. Thought process is concrete. Thought content, no suicidal or homicidal ideation. Cognition is impaired. Insight and judgment are limited. ASSESSMENT: Quitman I Anxiety disorder. Cognitive impairment. Major depressive disorder. Quitman II Quitman III Quitman IV Quitman V PLAN: 1. We will increase the Celexa to 40 mg in the morning. 2. Discontinue the Seroquel 200, continue the 50 mg at night. 3. Discussed with the nurse. Luc Meadows M.D. DR: MARIELA JOB#: [id number] CC: IGGY
[2020-01-01] MEDS ORDERED: Citalopram Hydrobromide 10mg Tab ORAL SCH (09:00)
--- NOTE | 2020-01-01 12:55 | Discharge Summary ---
Discharge Summary Discharge Summary _ DATE OF ADMISSION: 12/28/2019 DATE OF DISCHARGE: 12/31/2019 DISCHARGED BY: Venus REASON FOR ADMISSION: 79 years old female with past medical history of hypertension, depression ,memory loss ,presented with dizziness and syncopal versus near syncopal episode from the assisted-living. Patient apparently was taken long-term psychotropic medication. Patient reported dizziness while standing. Patient also reported syncopal episodes in the past. Patient overall was a poor historian and unable to remember exactly what happened. Upon evaluation in emergency department laboratory work-up was unremarkable . Glucose 73. Lactic acid 1.0 Troponin negative , proBNP 279 . Stable electrolytes , renal parameters, hemoglobin and hematocrit. No leukocytosis. Urinalysis revealed pyuria and many bacteria. Chest x-ray demonstrated bibasilar opacity , possibly representing atelectasis. Rapid COVID-19 was negative. Patient was admitted for further management. CONSULTANTS: psychiatrist Dr. Meadows [facility]: Patient initially admitted to telemetry floor. Patient was tapered off labetalol. Orthostatic vital signs revealed orthostatic changes . Patient was provided initially with IV hydration. Patient started on empiric antibiotic for UTI. Urine culture revealed mixed gram-positive organisms with 50-60 K. Antibiotic stopped. Patient had m/p vaginitis and started on Diflucan. Blood cultures were negative. Psychiatrist seen and evaluated patient and optimize psychiatric medication regimen. Seroquel dose was decreased from 20 mg to 50 mg daily. Reality rotation and supportive therapy provided. Patient clinically stabilized and was ready for transfer back to assisted living. FINAL DIAGNOSES: Syncope versus near syncopal episode , probably due to orthostatic hypotension m/p Vaginitis Anxiety disorder Major depressive disorder Atelectasis Cognitive impairment History of psychotropic medication use for a long-term DISCHARGE MEDICATIONS: See Medication Reconciliation list. DISCHARGE INSTRUCTIONS: Patient was discharged to assisted living. Follow-up with a primary care provider in 1 week. I have been assigned to dictate discharge summary for this account. I was not involved in the patient's management. Petrona Prasad NP Jan 01, 2020 12:54
--- NOTE | 2020-01-01 21:57 | Cardiology Report ---
APPROVED REPORT EKG Measurement Heart [id number] CT 220P10 [id number] <Conclusion> Sinus rhythm with 1st degree AV block Cannot rule out Anterior infarct, age undetermined Abnormal ECG
--- NOTE | 2020-01-01 22:08 | Cardiology Report ---
APPROVED REPORT EKG Measurement Heart [id number] [place] 206P26 [id number] <Conclusion> Normal sinus rhythm with sinus arrhythmia Normal ECG
== END 2019-12-31 21:35 | disposition home or self-care (01) | DRG 312 ==
LOC: EDBD 14:33 → EMR 14:55 → 2W 15:20 → OBSVTOIN 15:20 → EDBEDREQ 16:16 → 2W 21:37 → 2E 12-29 13:07 → 4E 12-30 16:49
DX: I95.1 Orthostatic hypotension (principal); J98.11 Atelectasis; N39.0 Urinary tract infection, site not specified; N76.0 Acute vaginitis; F41.9 Anxiety disorder, unspecified; F32.9 Major depressive disorder, single episode, unspecified; G31.84 Mild cognitive impairment of uncertain or unknown etiology; Z79.82 Long term (current) use of aspirin
CPT/HCPCS: 36415; 71045; 80048; 80053; 80061; 81003; 82550; 82553; 83605; 83735; 83880; 84100; 84443; 84484; 85025; 87040; 87081; 87086; 93005; 99285; U0002